=== PATIENT | male | born 1935 | race Caucasian/White ===

== ENCOUNTER 2022-12-15 13:25 | Emergency (ER) | payer OTHER, MEDICARE, BC | END 2022-12-15 16:19 | disposition home or self-care (01) | LOC: VM.ED 13:25 | DX: Z04.1 Encounter for examination and observation following transport accident (principal); I10 Essential (primary) hypertension; K21.9 Gastro-esophageal reflux disease without esophagitis; Z79.82 Long term (current) use of aspirin; Z79.899 Other long term (current) drug therapy | CPT/HCPCS: 99283; 99284 ==